=== PATIENT | female | born 1980 | race Caucasian/White ===

== ENCOUNTER 2017-11-20 09:55 | Emergency (ER) | payer BC, SELFPAY ==
--- NOTE | 2017-11-20 10:39 | EDPHYS ---
Physician Documentation [facility] Name: Mary Esquivel Age: 37 yrs Sex: Female : 1980 Arrival Date: 11/20/2017 Time: 09:57 Bed 16 Private MD: ED Physician Uriah Conner HPI: 11/20 10:30 This 37 yrs old Female presents to ER via Ambulatory with complaints of Back tw4 Pain. 10:30 The patient presents with pain that is acute. The symptoms are located in the right tw4 scapular area. Onset: The symptoms/episode began/occurred yesterday. The pain does not radiate. Associated signs and symptoms: The patient has no apparent associated signs or symptoms. The problem was sustained from unknown cause. Modifying factors: The patient symptoms are alleviated by nothing, the patient symptoms are aggravated by lifting, movement. Severity of symptoms: At their worst the symptoms were moderate, in the emergency department the symptoms are unchanged. The patient has not experienced similar symptoms in the past. 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 - Social history:: Smoking status: Patient uses tobacco products, smokes one-half pack cigarettes per day. ROS: 10:30 Constitutional: Negative for fever, chills, and weight loss, Eyes: Negative for injury, tw4 pain, redness, and discharge, Cardiovascular: Negative for chest pain, palpitations, and edema, Respiratory: Negative for shortness of breath, cough, wheezing, and pleuritic chest pain, Abdomen/GI: Negative for abdominal pain, nausea, vomiting, diarrhea, and constipation, Back: Negative for injury and pain, MS/Extremity: Negative for injury and deformity, Neuro: Negative for headache, weakness, numbness, tingling, and seizure, Psych: Negative for depression, anxiety, suicide ideation, homicidal ideation, and hallucinations. Exam: 10:30 Constitutional: This is a well developed, well nourished patient who is awake, alert, tw4 and in no acute distress. Head/Face: Normocephalic, atraumatic. Chest/axilla: Normal chest wall appearance and motion. Nontender with no deformity. No lesions are appreciated. Cardiovascular: Regular rate and rhythm with a normal S1 and S2. No gallops, murmurs, or rubs. Normal PMI, no JVD. No pulse deficits. Respiratory: Lungs have equal breath sounds bilaterally, clear to auscultation and percussion. No rales, rhonchi or wheezes noted. No increased work of breathing, no retractions or nasal flaring. Abdomen/GI: Soft, non-tender, with normal bowel sounds. No distension or tympany. No guarding or rebound. No evidence of tenderness throughout. 10:30 MS/ Extremity: Pulses equal, no cyanosis. Neurovascular intact. Full, normal range of motion. Neuro: Awake and alert, GCS 15, oriented to person, place, time, and situation. Cranial nerves II-XII grossly intact. Motor strength 5/5 in all extremities. Sensory grossly intact. Cerebellar exam normal. Normal gait. 10:30 Back: pain, that is very mild. 10:30 Back: pain, of the right scapular area, muscle spasm, is appreciated in the right scapular area. Vital Signs: 10:06 BP 119 / 59; Pulse 75; Resp 15; Temp 97.7(TE); Pulse Ox 99% on R/A; Weight 68.04 kg; ss Height 5 ft. 6 in. (167.64 cm); Pain 4/10; 10:06 Body Mass Index 24.21 (68.04 kg, 167.64 cm) MDM: 10:20 Patient medically screened. 4 10:30 Data reviewed: vital signs, nurses notes. Counseling: I had a detailed discussion with [facility] the patient and/or guardian regarding: the historical points, exam findings, and any diagnostic results supporting the discharge/admit diagnosis. Medication response: Toradol markedly relieved the patient's pain. Response to treatment: the patient's symptoms have mildly improved after treatment. Special discussion: I discussed with the patient/guardian in detail that at this point there is no indication for admission to the hospital. It is understood, however, that if the symptoms persist or worsen the patient needs to return immediately for re-evaluation. Administered Medications: 10:45 Drug: TORadol 30 mg Route: IM; Site: right deltoid; iw 10:50 Follow up: Response: No adverse reaction iw Disposition: 11/20/17 10:38 Discharged to Home. Impression: Sprain of other specified parts of right shoulder girdle. - Condition is Stable. - Discharge Instructions: Shoulder Pain, [id number], Shoulder Sprain. - Prescriptions for Ibuprofen 800 mg Oral Tablet - take 1 tablet by ORAL route every 12 hours As needed take with food; 20 tablet. Tylenol- Codeine #3 300-30 mg Oral Tablet - take 2 tablet by ORAL route every 6 hours As needed; 6 tablet. Cyclobenzaprine 10 mg Oral Tablet - take 1 tablet by ORAL route every 8 hours As needed; 30 tablet. - Medication Reconciliation Form, Thank You Letter, Antibiotic Education, Prescription Opioid Use form. - Follow up: Private Physician; When: As needed; Reason: If symptoms return, Recheck today's complaints, Continuance of care, Re-evaluation by your physician. - Problem is new. - Symptoms have improved. Signatures: Cristine French RN RN Breonna Steward RN RN Uriah Cnoner MD MD tw4
--- NOTE | 2017-11-20 10:39 | ER ---
Nurse's Notes [facility] Name: Mary Esquivel Age: 37 yrs Sex: Female : 1980 Arrival Date: 11/20/2017 Time: 09:57 Bed 16 Private MD: Diagnosis: Sprain of other specified parts of right shoulder girdle Presentation: 11/20 10:05 Presenting complaint: Patient states: intermittent sharp, stabbing pain to R shoulder ss blade that began last night. Denies SOB. pain is worse when coughing. Transition of care: patient was not received from another setting of care. Onset of symptoms was November 19, 2017. Care prior to arrival: None. 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 - Social history:: Smoking status: Patient uses tobacco products, smokes one-half pack cigarettes per day. Screenin:34 Abuse screen: Denies threats or abuse. Denies injuries from another. Nutritional iw screening: No deficits noted. Tuberculosis screening: No symptoms or risk factors identified. Fall Risk None identified. Assessment: 10:34 General: Appears in no apparent distress. Behavior is calm, cooperative. Pain: iw Complains of pain in right scapular area. Neuro: Level of Consciousness is awake, alert, obeys commands, Oriented to person, place, time, situation, Moves all extremities. Full function. Cardiovascular: Patient's skin is warm and dry. Respiratory: Respiratory effort is even, unlabored. Derm: Skin is pink, warm \T\ dry. normal. Musculoskeletal: Range of motion: intact in all extremities. Vital Signs: 10:06 BP 119 / 59; Pulse 75; Resp 15; Temp 97.7(TE); Pulse Ox 99% on R/A; Weight 68.04 kg; ss Height 5 ft. 6 in. (167.64 cm); Pain 4/10; 10:06 Body Mass Index 24.21 (68.04 kg, 167.64 cm) ED Course: 09:57 Patient arrived in ED. as 10:05 Triage completed. ss 10:06 Arm band placed on right wrist. ss 10:08 Cristine French, RN is Primary Nurse. iw 10:20 Uriah Conner MD is Attending Physician. tw4 10:34 Patient has correct armband on for positive identification. iw 10:34 No provider procedures requiring assistance completed. Patient did not have IV access iw during this emergency room visit. Administered Medications: 10:45 Drug: TORadol 30 mg Route: IM; Site: right deltoid; iw 10:50 Follow up: Response: No adverse reaction iw Outcome: 10:38 Discharge ordered by . tw4 10:49 Patient left the ED. iw 10:49 Discharged to home ambulatory. iw 10:49 Condition: good 10:49 Discharge instructions given to patient, Instructed on discharge instructions, follow up and referral plans. medication usage, Demonstrated understanding of instructions, follow-up care, medications, Prescriptions given X 3. Signatures: Princess Zee as Cristine French, DESMOND LOGAN Breonna Steward RN RN Uriah Conner MD MD 4
[2017-11-20] MEDS ORDERED: KETOROLAC 30 MG/ML INJ ONE (10:59)
== END 2017-11-20 10:49 | disposition home or self-care (01) ==
LOC: ER 09:55
DX: S43.81XA Sprain of other specified parts of right shoulder girdle, initial encounter (principal); F17.210 Nicotine dependence, cigarettes, uncomplicated; Z98.82 Breast implant status
CPT/HCPCS: 96372; 99283

== ENCOUNTER 2021-04-04 21:30 | Emergency (ER) | payer BC, OTHER ==
[2021-04-04 23:31] LABS: Urine Blood Negative (Negative); Urine Glucose Negative (Negative); Urine Protein 1+ (Negative); Urine Specific Gravity 1.025 (1.005-1.030)
[2021-04-04] MEDS ORDERED: MAGNES/ALUMIN/SIMET 30ML UCUP ONE (23:32)
[2021-04-04] MEDS ORDERED: ONDANSETRON 4 MG/2 ML VIAL ONE (23:32)
[2021-04-04] MEDS ORDERED: FAMOTIDINE 20 MG/2 ML VIAL IV ONE (23:33)
[2021-04-04] MEDS ORDERED: NA CHLORIDE 0.9% 1,000 ML ONE (23:33)
[2021-04-04] MEDS ORDERED: LIDOCAINE VISCOUS 2% SOLN 15 ML UDC ONE (23:33)
[2021-04-04 23:35] LABS: Absolute Lymphocytes (CBC) 1.1 K/uL (0.7-4.9); Basophils % 0.3 % (0-1.3); Lymphocytes % 17.3 % (15.3-44.8); MPV 7.7 fL (7.6-11.3); RBC Red Blood Cell Count 4.58 M/uL (3.86-4.86)
[2021-04-04 23:40] LABS: ALT/SGPT 27 U/L (12-78); AST/SGOT 20 U/L (15-37); Albumin 3.9 g/dL (3.4-5.0); Alkaline Phosphatase 69 U/L (45-117); BUN Blood Urea Nitrogen 12 mg/dL (7-18); Bicarbonate 28 mmol/L (21-32); Bilirubin Direct < 0.1 mg/dL (0-0.2); Bilirubin Total 0.3 mg/dL (0.2-1.0); Glucose Level 92 mg/dL (74-106); Lipase 75 U/L (73-393); Potassium 3.5 mmol/L (3.5-5.1); Protein, Total 7.5 g/dL (6.4-8.2); Sodium Level 140 mmol/L (136-145)
--- NOTE | 2021-04-05 00:43 | ER ---
Nurse's Notes [facility] Name: Mary Grimaldo Age: 40 yrs Sex: Female : 1980 Arrival Date: 04/04/2021 Time: 21:36 Bed 25 Private MD: Diagnosis: Gastritis, unspecified, without bleeding Presentation: 04/04 22:30 Chief complaint: Patient states: she went to [place] last night for epigastric pain and bb had a full work-up with CT and US which were all normal but she is still having the pain. Pain is sharp and intermittent vomited yesterday x 3 but not today, denies diarrhea, no fever. Coronavirus screen: At this time, the client does not indicate any symptoms associated with coronavirus-19. Ebola Screen: No symptoms or risks identified at this time. Initial Sepsis Screen: Does the patient meet any 2 criteria? No. Patient's initial sepsis screen is negative. Does the patient have a suspected source of infection? No. Patient's initial sepsis screen is negative. Risk Assessment: Do you want to hurt yourself or someone else? Patient reports no desire to harm self or others. Onset of symptoms was April 03, 2021. 22:30 Method Of Arrival: Ambulatory bb 22:30 Acuity: [place] 3 bb Triage Assessment: 22:35 General: Appears in no apparent distress. uncomfortable, Behavior is cooperative, bb anxious. Pain: Complains of pain in abdomen Pain currently is 8 out of 10 on a pain scale. Neuro: Level of Consciousness is awake, alert, obeys commands, Oriented to person, place, time, situation. Cardiovascular: Capillary refill < 3 seconds Patient's skin is warm and dry. Respiratory: Respiratory effort is even, unlabored, Respiratory pattern is regular. GI: Abdomen is non-distended, Reports upper abdominal pain, vomiting. : No signs and/or symptoms were reported regarding the genitourinary system. Derm: Skin is pink, warm \T\ dry. Musculoskeletal: Circulation, motion, and sensation intact. 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 - Social history:: Smoking status: Patient denies any tobacco usage or history of. Screenin:31 Abuse screen: Denies threats or abuse. Denies injuries from another. Nutritional zb screening: No deficits noted. Tuberculosis screening: No symptoms or risk factors identified. Fall Risk None identified. Assessment: 23:32 General: Appears in no apparent distress. Behavior is calm, cooperative, appropriate zb for age. Pain: Complains of pain in epigastric area and abdomen Pain does not radiate. Pain currently is 7 out of 10 on a pain scale. Quality of pain is described as sharp, stabbing, Pain began 2-3 days ago. Is intermittent. Neuro: Level of Consciousness is awake, alert, obeys commands, Oriented to person, place, time, situation. Cardiovascular: Patient's skin is warm and dry. Respiratory: Airway is patent Respiratory effort is even, unlabored, Respiratory pattern is regular. GI: Abdomen is flat, Bowel sounds present X 4 quads. Abd is soft and non tender Reports upper abdominal pain, epigastric pain, nausea, Patient currently denies constipation, diarrhea. : Urine is clear. Derm: Skin is intact, is healthy with good turgor. Musculoskeletal: Range of motion: intact in all extremities. 04/05 01:11 Reassessment: Patient is alert, oriented x 3, equal unlabored respirations, skin bb warm/dry/pink. pt verbalized understanding of and agrees to plan of care discharge instructions given pt ambulated with steady gait to exit Patient states feeling better. Vital Signs: 04/04 22:30 BP 100 / 68; Pulse 79; Resp 18 S; Temp 98.9(O); Pulse Ox 100% on R/A; Weight 77.11 kg bb (R); Height 5 ft. 6 in. (167.64 cm) (R); Pain 8/10; 23:50 BP 107 / 77; Pulse 71; Resp 16; Pulse Ox 100% on R/A; zb 04/05 01:12 BP 102 / 71; Pulse 89; Resp 16 S; Pulse Ox 98% on R/A; bb 04/04 22:30 Body Mass Index 27.44 (77.11 kg, 167.64 cm) bb ED Course: 04/04 21:36 Patient arrived in ED. wm 22:35 Triage completed. bb 22:35 Arm band placed on Patient placed in waiting room, Patient notified of wait time. bb 22:39 Suzette Shi RN is Primary Nurse. zb 22:40 Cody Crocker MD is Attending Physician. [facility] 23:03 Inserted saline lock: 20 gauge in left antecubital area, using aseptic technique. Blood dh4 collected. 23:34 Patient has correct armband on for positive identification. Pulse ox on. NIBP on. Door zb closed. Noise minimized. 04/05 00:49 Christopher Holcomb MD is Referral Physician. [facility] 01:18 No provider procedures requiring assistance completed. IV discontinued, intact, bb bleeding controlled, No redness/swelling at site. Pressure dressing applied. Administered Medications: 04/04 23:23 Drug: NS 0.9% 1000 ml Route: IV; Rate: 1000 ml; Site: left antecubital; b 04/05 00:30 Follow up: IV Status: Completed infusion; IV Intake: 1000ml 04/04 23:23 Drug: Pepcid (famotidine) 20 mg Route: IVP; Site: left antecubital; b 04/05 01:13 Follow up: Response: No adverse reaction 04/04 23:23 Drug: Zofran (Ondansetron) 4 mg Route: IVP; Site: left antecubital; b 04/05 01:13 Follow up: Response: No adverse reaction 04/04 23:23 Drug: GI Cocktail without - (Maalox Suspension 30 ml, Lidocaine Liquid 2 % 15 zb ml) Route: PO; 04/05 01:13 Follow up: Response: No adverse reaction bb Intake: 00:30 IV: 1000ml; Total: 1000ml. bb Outcome: 00:42 Discharge ordered by . [facility] 01:19 Discharged to home ambulatory. 01:19 Condition: stable 01:19 Discharge instructions given to patient, Instructed on discharge instructions, follow up and referral plans. medication usage, Demonstrated understanding of instructions, follow-up care, medications, Prescriptions given X 2. 01:19 Patient left the ED. bb Signatures: Daxa Landon RN RN bb Huhn, Donald dh4 Cody Crocker MD MD Suzette Rodriguez RN RN zMelanie Maria wm
--- NOTE | 2021-04-05 00:43 | EDPHYS ---
Physician Documentation [facility] Name: Mary Grimaldo Age: 40 yrs Sex: Female : 1980 Arrival Date: 04/04/2021 Time: 21:36 Bed 25 Private MD: ED Physician Cody Crocker HPI: 04/04 22:52 This 40 yrs old Female presents to ER via Ambulatory with complaints of mh7 Epigastric Pain. 22:52 The patient presents with abdominal pain in the epigastric area. Onset: The mh7 symptoms/episode began/occurred yesterday. The symptoms do not radiate. Associated signs and symptoms: Pertinent positives: nausea, vomiting, Pertinent negatives: anorexia, blood in stools, chest pain, constipation, diarrhea, dysuria, fever, headache, hematuria, palpitations, shortness of breath, vaginal discharge, vomiting blood. The symptoms are described as intermittent, vague, waxing/waning. Modifying factors: The symptoms are alleviated by Zofran, Bentyl, the symptoms are aggravated by nothing. Severity of pain: At its worst the pain was moderate yesterday, in the emergency department the pain has improved moderately. The patient has been recently seen by a physician: Seen at an outside emergency department yesterday. Patient with epigastric pain started yesterday with nausea vomiting. She was seen at an outside emergency department yesterday and had a work-up including labs, CT abdomen pelvis and ultrasound abdomen. Results of test were unremarkable. Pain has been intermittent. Still has some intermittent nausea but no vomiting today. Denies any chest pain, fever, cough, shortness of breath, diarrhea, or dysuria.. 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 - Social history:: Smoking status: Patient denies any tobacco usage or history of. ROS: 22:52 Constitutional: Negative for fever, chills, and weight loss, Eyes: Negative for injury, mh7 pain, redness, and discharge, ENT: Negative for injury, pain, and discharge, Neck: Negative for injury, pain, and swelling, Cardiovascular: Negative for chest pain, palpitations, and edema, Respiratory: Negative for shortness of breath, cough, wheezing, and pleuritic chest pain, Back: Negative for injury and pain, : Negative for injury, bleeding, discharge, and swelling, MS/Extremity: Negative for injury and deformity, Skin: Negative for injury, rash, and discoloration, Neuro: Negative for headache, weakness, numbness, tingling, and seizure, Psych: Negative for depression, anxiety, suicide ideation, homicidal ideation, and hallucinations, Allergy/Immunology: Negative for hives, rash, and allergies, Endocrine: Negative for neck swelling, polydipsia, polyuria, polyphagia, and marked weight changes, Hematologic/Lymphatic: Negative for swollen nodes, abnormal bleeding, and unusual bruising. Exam: 22:52 Constitutional: This is a well developed, well nourished patient who is awake, alert, mh7 and in no acute distress. Head/Face: Normocephalic, atraumatic. Eyes: Pupils equal round and reactive to light, extra-ocular motions intact. Lids and lashes normal. Conjunctiva and sclera are non-icteric and not injected. Cornea within normal limits. Periorbital areas with no swelling, redness, or edema. Neck: Trachea midline, no thyromegaly or masses palpated, and no cervical lymphadenopathy. Supple, full range of motion without nuchal rigidity, or vertebral point tenderness. No Meningismus. Chest/axilla: Normal chest wall appearance and motion. Nontender with no deformity. No lesions are appreciated. Cardiovascular: Regular rate and rhythm with a normal S1 and S2. No gallops, murmurs, or rubs. Normal PMI, no JVD. No pulse deficits. Respiratory: Lungs have equal breath sounds bilaterally, clear to auscultation and percussion. No rales, rhonchi or wheezes noted. No increased work of breathing, no retractions or nasal flaring. 22:52 Back: No spinal tenderness. No costovertebral tenderness. Full range of motion. Skin: Warm, dry with normal turgor. Normal color with no rashes, no lesions, and no evidence of cellulitis. MS/ Extremity: Pulses equal, no cyanosis. Neurovascular intact. Full, normal range of motion. Neuro: Awake and alert, GCS 15, oriented to person, place, time, and situation. Cranial nerves II-XII grossly intact. Motor strength 5/5 in all extremities. Sensory grossly intact. Cerebellar exam normal. Normal gait. Psych: Awake, alert, with orientation to person, place and time. Behavior, mood, and affect are within normal limits. 22:52 Abdomen/GI: Inspection: abdomen appears normal, Bowel sounds: normal, in all quadrants, Palpation: mild abdominal tenderness, in the epigastric area, mass, is not appreciated, rebound tenderness, is not appreciated, voluntary guarding, is not appreciated, involuntary guarding, is not appreciated, no appreciated organomegaly, Rectal exam: the exam is deferred, because of patient request, Indicators: McBurney's point is not tender, Abraham's sign is negative, Rovsing's sign is negative, Obturator sign is negative, Psoas sign is negative, Liver: no appreciated palpable abnormalities, Hernia: not appreciated. Vital Signs: 22:30 BP 100 / 68; Pulse 79; Resp 18 S; Temp 98.9(O); Pulse Ox 100% on R/A; Weight 77.11 kg bb (R); Height 5 ft. 6 in. (167.64 cm) (R); Pain 8/10; 23:50 BP 107 / 77; Pulse 71; Resp 16; Pulse Ox 100% on R/A; zb 04/05 01:12 BP 102 / 71; Pulse 89; Resp 16 S; Pulse Ox 98% on R/A; bb 04/04 22:30 Body Mass Index 27.44 (77.11 kg, 167.64 cm) MDM: 00:41 Differential diagnosis: gastritis, gastroesophageal reflux disease, non-specific abd mh7 pain, pancreatitis, Peptic Ulcer Disease, urinary tract infection. Data reviewed: vital signs, nurses notes, lab test result(s), CBC, electrolytes, urinalysis, UPT: negative. Data reviewed: EKG. Data interpreted: Pulse oximetry: on room air is 100 %. Interpretation: normal. Counseling: I had a detailed discussion with the patient and/or guardian regarding: the historical points, exam findings, and any diagnostic results supporting the discharge/admit diagnosis, lab results, the need for outpatient follow up, to return to the emergency department if symptoms worsen or persist or if there are any questions or concerns that arise at home. Response to treatment: the patient's symptoms have resolved after treatment, the patient's blood pressure is in an acceptable range, mental status has returned to baseline, the patient no longer shows bradycardia, the patient is not short of breath, the patient is not tachycardic, the patient's pain is gone, the patient's temperature has normalized, the patient is now symptom free, patient is well hydrated. 00:42 Patient medically screened. [facility] 04/04 22:52 Order name: Basic Metabolic Panel; Complete Time: 23:41 [facility] 04/04 22:52 Order name: CBC with Diff; Complete Time: 23:41 [facility] 04/04 22:52 Order name: Hepatic Function; Complete Time: 23:41 [facility] 04/04 22:52 Order name: Lipase; Complete Time: 23:41 [facility] 04/04 23:30 Order name: Urine Dipstick-Ancillary; Complete Time: 23:35 [facility] 04/04 23:35 Order name: Urine Dipstick--Ancillary (enter results) [facility] 04/04 22:52 Order name: IV Saline Lock; Complete Time: 23:03 [facility] 04/04 22:52 Order name: Labs collected and sent; Complete Time: 23:03 [facility] 04/04 22:52 Order name: Urine Dipstick-Ancillary (obtain specimen); Complete Time: 23:31 [facility] 04/04 22:52 Order name: Urine Test (obtain specimen); Complete Time: 23:31 [facility] 04/04 22:52 Order name: EKG - Nurse/Tech; Complete Time: 23:23 [facility] Administered Medications: 04/04 23:23 Drug: NS 0.9% 1000 ml Route: IV; Rate: 1000 ml; Site: left antecubital; 04/05 00:30 Follow up: IV Status: Completed infusion; IV Intake: 1000ml 04/04 23:23 Drug: Pepcid (famotidine) 20 mg Route: IVP; Site: left antecubital; 04/05 01:13 Follow up: Response: No adverse reaction 04/04 23:23 Drug: Zofran (Ondansetron) 4 mg Route: IVP; Site: left antecubital; 04/05 01:13 Follow up: Response: No adverse reaction bb 04/04 23:23 Drug: GI Cocktail without - (Maalox Suspension 30 ml, Lidocaine Liquid 2 % 15 zb ml) Route: PO; 04/05 01:13 Follow up: Response: No adverse reaction bb Disposition Summary: 04/05/21 00:42 Discharge Ordered Location: Home [facility] Problem: new [facility] Symptoms: have improved [facility] Condition: Stable [facility] Diagnosis - Gastritis, unspecified, without bleeding [facility] Followup: [facility] - With: Private Physician - When: 1 - 2 days - Reason: Worsening of condition, Recheck today's complaints, Continuance of care, Re-evaluation by your physician Followup: [facility] - With: Christopher oHlcomb MD - When: 1 - 2 days - Reason: Worsening of condition, Recheck today's complaints Discharge Instructions: - Discharge Summary Sheet [facility] - Gastritis, Adult, [id number] [facility] Forms: - Medication Reconciliation Form [facility] - Thank You Letter [facility] - Antibiotic Education [facility] - Prescription Opioid Use [facility] Prescriptions: - Mylanta Maximum Strength 400-400-40 mg/5 mL Oral suspension - take 10 milliliter by ORAL route 2 times per day As needed; 100 milliliter; 7 Refills: 0, Product Selection Permitted - omeprazole 20 mg Oral capsule,delayed release(DR/EC) - take 1 capsule by ORAL route once daily; 15 capsule; Refills: 0, Product [facility] Selection Permitted Signatures: Dispatcher [employer] Daxa Camarillo RN RN bb Holmes, Maurice, MD MD mh7 Brown, Zipporah, RN RN zb
[2021-04-05 01:55] VITALS: TEMP 98.9
[2021-04-05 01:58] VITALS: BP 102/71; O2SAT 98
[2021-04-05 02:50] LABS: Urine Blood NEGATIVE (Negative); Urine Glucose NEGATIVE (Negative); Urine Protein 1+ (Negative); Urine Specific Gravity 1.025 (1.005-1.030)
== END 2021-04-05 01:19 | disposition home or self-care (01) ==
LOC: ER 21:30
DX: K29.70 Gastritis, unspecified, without bleeding (principal)
CPT/HCPCS: 93005; 85025; 80048; 36415; 80076; 81003 ×2; 83690; J7030; J2405; 96361; 96374; 96375; 99284